=== PATIENT | female | born 1945 | race Caucasian/White ===

== ENCOUNTER 2016-09-01 17:27 | Inpatient (IN) | payer MEDICARE ==
--- NOTE | ~2016-09-01 | DS ---
Unit #: [id number] #: [id number] Patient: LEIGHA VÁZQUEZ [id number] [address] [place], [place] [address] [id number] I MR#: [id number] NAME: LEIGHA VÁZQUEZ. ROOM: 470 Age: 71 Sex: F Admission Date: 09/01/2016 : 1945 Discharge Date: 09/04/2016 Attending Physician: Paula Escobar M.D. Primary Care Physician: Leonela Rodarte M.D. DISCHARGE SUMMARY PRINCIPAL DIAGNOSES 1. Acute kidney injury, prerenal. 2. Nausea, vomiting and diarrhea likely secondary to viral gastroenteritis. 3. Hypomagnesemia. 4. Hyperphosphatemia. 5. Hypertension. 6. Hyperlipidemia. 7. Overweight. 8. Mild protein malnutrition. 9. Hyponatremia, resolved. 10. High anion gap metabolic acidosis secondary to uremia, now resolved. CONSULTANTS Dr. Catalan, nephrology. DIAGNOSTIC STUDIES CARDIOVASCULAR: Two-dimensional echocardiogram, the results of which are currently pending. IMAGING: Bilateral renal ultrasound on September 01, 2016 with generalized bilateral renal cortical thinning. No renal mass or hydronephrosis. Chest x-ray on September 02, 2016 with cardiomegaly. CLINICAL HISTORY AND HOSPITAL COURSE Ms. Vázquez is a very nice 71-year-old female referred to the hospital by her primary care physician after findings of significant elevation in creatinine in blood work done in the office. Please refer to H and P for further details. Upon presentation here the patient's creatinine was initially 9.5. She was placed on aggressive IV fluids. Nephrotoxic medications were discontinued, and nephrology was consulted, and the patient was subsequently admitted. The patient remained on IV fluids in addition to PhosLo, and over the course of several days, creatinine has now been trending down. At time of dictation creatinine today is not yet done, but yesterday it was down to 4.4. I discussed this with Dr. Catalan who states the patient can be discharged home off of any possible nephrotoxic medications, and she will follow up in the office. The patient's associated nausea, vomiting and diarrhea have resolved. I suspect her symptoms began with a viral gastroenteritis and were exacerbated by worsening renal function. Her symptoms have resolved, and Unit #: [id number] #: [id number] Patient: LEIGHA VÁZQUEZ she is tolerating a diet. The patient does have a history of hypertension, and nephrotoxic medications were held during hospitalization. We are going to reinitiate Metoprolol upon discharge but hold her amlodipine/benazepril, and this can be reinitiated if blood pressure continues to elevate and when renal function improves. DISCHARGE CONDITION Stable. DISCHARGE STATUS Discharge to home. DISCHARGE MEDICATIONS 1. Zetia 10 mg daily. 2. Metoprolol tartrate 25 mg daily. 3. Fenofibrate 160 mg daily. 4. Again, Norvasc/benazepril 10/40 is being held. DISCHARGE INSTRUCTIONS Patient was instructed to follow a heart healthy diet. She can increase her activity as tolerated. She should avoid all NSAIDs over the counter until seen in followup. FOLLOW-UP 1. Patient will follow up with Dr. Catalan in 1-2 weeks. 2. She will follow up with Dr. Rodarte in approximately 2 weeks. Dictated by... Paula Escobar M.D. MARIANA/mercedes TD: 09/05/2016 11:36 JOB #: [id number] DISCHARGE SUMMARY X Paula Escobar MD X DISCHARGE SUMMARY
--- NOTE | ~2016-09-01 | US77 ---
[facility] A Service of [facility] RADIOLOGY TEXT RESULTS PATIENT: LEIGHA VÁZQUEZ LOCATION: [facility] [id number] : [birth year] UNIT #: [id number] AGE: [address]: MARCUS ZIMMER MD SEX: F ORDER DR: [id number] [facility] [address] [place], [place] [address] [id number] I MR#: [id number] Acc #: [id number] NAME: LEIGHA VÁZQUEZ : 1945 SEX: F STUDY DATE/TIME: 09/01/2016 18:36 UNIT: [facility] ROOM: [facility] STUDY DESCRIPTION: US Kidney Bilateral Complete Attending Physician: Marcus Zimmer M.D. Ordering Physician: Porter Chang M.D. Primary Care Physician: Leonela Rodarte M.D. MEDICAL IMAGING REPORT This report is preliminary unless electronic signature is present EXAM Bilateral renal ultrasound HISTORY Elevated BUN and creatinine. FINDINGS Ultrasound examination of both kidneys demonstrates no renal mass or hydronephrosis. Fomh-fe-rxaadurs generalized bilateral renal cortical atrophy. No focal renal atrophy or perinephric fluid collection. The right kidney measures 11.4 cm in length and the left kidney measures 10.3 cm in length. The bladder is decompressed and not visible. IMPRESSION 1. Moderate generalized bilateral renal cortical thinning. 2. No renal mass or hydronephrosis. Dictated by... Jeremiah Kim M.D. THIS IS AN ELECTRONICALLY VERIFIED REPORT Jeremiah Kim M.D. at 09/02/2016 3:35 PM DFL/rnr TD: 09/02/2016 00:01 JOB #: [id number] MEDICAL IMAGING REPORT COPY
--- NOTE | ~2016-09-01 | CR63 ---
[facility] A Service of [facility] RADIOLOGY TEXT RESULTS PATIENT: LEIGHA VÁZQUEZ LOCATION: [place] [address] : [birth year] UNIT #: [id number] AGE: [address]: MARCUS ZIMMER MD SEX: F ORDER DR: [id number] [facility] [address] [place], [place] [address] [id number] I MR#: [id number] Acc #: [id number] NAME: LEIGHA VÁZQUEZ : 1945 SEX: F STUDY DATE/TIME: 09/02/2016 14:31 UNIT: [facility] ROOM: [facility] STUDY DESCRIPTION: CR Chest 2 View Attending Physician: Marcus Zimmer M.D. Ordering Physician: Maverick Catalan M.D. Primary Care Physician: Leonela Rodarte M.D. MEDICAL IMAGING REPORT This report is preliminary unless electronic signature is present EXAM 2 view chest. DATE OF EXAM 09/02/2016 INDICATIONS Labile hypertension. Hypotension today. PROCEDURE Frontal and lateral views of the chest. COMPARISON None. FINDINGS Mild cardiomegaly. Low lung volumes. No dense consolidation, pleural fluid or pneumothorax. IMPRESSION Mild cardiomegaly and low lung volumes. Dictated by... Colton Pugh M.D. THIS IS AN ELECTRONICALLY VERIFIED REPORT Colton Pugh M.D. at 09/04/2016 6:59 AM VICKIE/skyler TD: 09/02/2016 17:16 JOB #: [id number] [facility] A Service of [facility] RADIOLOGY TEXT RESULTS PATIENT: LEIGHA VÁZQUEZ LOCATION: [place] [address] : [birth year] UNIT #: [id number] AGE: [address]: MARCUS ZIMMER MD SEX: F ORDER DR: MEDICAL IMAGING REPORT COPY
--- NOTE | ~2016-09-01 | HP ---
Unit #: [id number] #: [id number] Patient: LEIGHA VÁZQUEZ [id number] [address] [address] [id number] MR#: [id number] NAME: LEIGHA VÁZQUEZ. ROOM: [facility] Age: 71 Sex: F Admission Date: 09/01/2016 : 1945 Attending Physician: Jessica Zimmer M.D. Primary Care Physician: Leonela Rodarte M.D. HISTORY AND PHYSICAL CHIEF COMPLAINT Abnormal labs. HISTORY OF PRESENT ILLNESS The patient is a 71-year-old female with history of hypertension and hyperlipidemia, brought to the emergency room from the PCP's office with the concern for abnormal labs. The patient has had diarrhea for the last nine days and then followed by nausea and vomiting for the last two to three days. Patient was seen by the PCP, Dr. Leonela Rodarte, at the office on and had the blood work done. The patient has a creatinine of 7 with a BUN of 65 and potassium of 4.8 with a baseline creatinine of 1.2 from 2012. The patient has been admitted for the above reasons. The patient also complains of the muscle cramps that has been going on for the last few days. The patient has decreased oral intake associated with the nausea and vomiting. The patient denies any new medication other than the Zofran that was started by the PCP. Denies any fever or chills, shortness of breath, chest pain, palpitations. PAST MEDICAL HISTORY 1. History of hypertension. 2. Hyperlipidemia. 3. Degenerative joint disease. PAST SURGICAL HISTORY None. HOME MEDICATIONS 1. Norvasc. 2. Zetia. 3. Statins. 4. Zofran. ALLERGIES SOCIAL HISTORY Denies history of smoking cigarettes, drinking alcohol or any illicit drug abuse. FAMILY HISTORY Positive for diabetes. REVIEW OF SYSTEMS A 14-point review of systems performed and only pertinent positive findings are described above, remaining are negative. Unit #: [id number] #: [id number] Patient: LEIGHA VÁZQUEZ PHYSICAL EXAMINATION VITAL SIGNS: Temperature 97.4, pulse 78, respiratory rate 18, blood pressure 143/55, saturating 96% at room air. GENERAL: Patient is lying on the bed not in acute distress. HEENT: Atraumatic, normocephalic. Pupils equal, round, and reactive to light and accommodation. Extraocular movements are intact. Dry mucous membrane. NECK: Supple. No JVD. LUNGS: Clear to auscultation bilaterally. No rhonchi, no wheezing. HEART: Regular rate and rhythm. ABDOMEN: Soft, positive bowel sounds. EXTREMITIES: No cyanosis, no clubbing. NEUROLOGIC: Alert, awake, oriented. No gross focal motor deficit. DIAGNOSTIC STUDIES LABORATORY: From the PCP's office, creatinine 7, BUN 65, potassium 4.8. Repeat labs are pending from the hospital. ASSESSMENT AND PLAN 1. Diarrhea. 2. Nausea and vomiting. 3. Acute kidney injury with a creatinine of 7. 4. Muscle cramps. 5. Hypertension. PLAN 1. Admit patient to inpatient with telemetry. 2. Check the STAT labs with CBC, CMP, CK, iron, lactate and urinalysis with culture. 3. Continue with IV fluids normal saline at 125 mL/h. 4. Check renal ultrasound to rule out obstruction. 5. Repeat labs again in the morning. 6. Will have the nephrology consult for management of acute kidney injury. 7. Further recommendations will follow. Dictated by Luz Goldstein TD: 09/01/2016 18:44 JOB #: [id number] Unit #: [id number] #: [id number] Patient: LEIGHA VÁZQUEZ HISTORY AND PHYSICAL X X HISTORY AND PHYSICAL
--- NOTE | ~2016-09-01 | CO ---
Unit #: [id number] #: [id number] Patient: LEIGHA VÁZQUEZ [id number] [address] [place], [place] [address] [id number] MR#: [id number] NAME: LEIGHA VÁZQUEZ. ROOM: [facility] Age: 71 Sex: F Admission Date: 09/01/2016 : 1945 Attending Physician: Jessica Zimmer M.D. Primary Care Physician: Leonela Rodarte M.D. CONSULTATION REPORT REASON FOR CONSULTATION Renal failure, hyperphosphatemia, metabolic acidosis. HISTORY OF PRESENT ILLNESS A 71-year-old female with significant past medical history of hypertension, hyperlipidemia, came to the ER and was found to have a very abnormal labs by primary care with a creatinine of 7 and now creatinine is 9.3. The patient's urine output that was low for the last 2 days has improved. The patient has diarrhea and vomiting going on off and on for the last 3 to 4 days, but she keep taking her antihypertensive medications. She never had a significant drop in blood pressure, but it was never recorded while she was very sick. The patient denies any other complaint at this time. Her abdominal pain has improved. Her diarrhea has improved. Her nausea, vomiting, sickness has improved and she is eating better. Her urine output that was low overnight has improved and more than 400 mL in last few hours. Her urinalysis did show some proteinuria and hematuria. PAST MEDICAL HISTORY Significant for hypertension, hyperlipidemia, degenerative joint disease. PAST SURGICAL HISTORY Noncontributory. HOME MEDICATIONS Norvasc, Zetia, statin, and Zofran. SOCIAL HISTORY The patient has no history of smoking or alcohol. FAMILY HISTORY Significant for diabetes. REVIEW OF SYSTEMS Already explained. PHYSICAL EXAMINATION GENERAL: The patient is an elderly white female, not in any acute distress. VITAL SIGNS: Last blood pressure is 138/70, pulse is 85, temperature 98, respiratory rate is 18, oxygen saturation 98%. HEAD AND NECK: Pupils are reactive to light. Extraocular movements intact. Mucous membranes moist. NECK: Supple. Unit #: [id number] #: [id number] Patient: LEIGHA VÁZQUEZ CHEST: Clear. No wheezes, no rales. HEART: Regular rate and rhythm. No murmur. No gallop. ABDOMEN: Soft and nontender. EXTREMITIES: No clubbing, cyanosis, or edema. Peripheral pulses are palpable. NEUROLOGIC: Grossly nonfocal. SKIN: Normal. DIAGNOSTIC STUDIES LABORATORY RESULTS: Showed sodium 129, creatinine 9.3, bicarb 16, phosphorus 8.8, magnesium 1.7. ASSESSMENT AND PLAN 1. Acute kidney injury likely it is acute tubular necrosis secondary to nausea, vomiting, diarrhea, decreased blood pressure in the presence of JOANNE inhibitors and some diuretics. The patient has significant volume depletion. Creatinine will improve slowly in next 3 to 4 days period. 2. Hematuria and proteinuria that is present on urinalysis will quantify protein excretion. We will check serology at this time. 3. Significant hyperphosphatemia secondary to acute kidney injury. Continue phosphate binder at this time. 4. Hyponatremia. We will follow up with the labs. Sodium level is low, because of renal failure and diarrhea. DISCUSSION Change IV fluid to bicarbonate-based fluid because of significant acidosis. Repeat labs. Check serology. Follow up with chest x-ray. Start phosphate binder. Repeat phosphorus level tomorrow morning. Thank you for letting me participate in taking care of this patient. Dictated by... Maverick Catalan M.D. KEITH/brook TD: 09/02/2016 13:15 JOB #: [id number] CONSULTATION REPORT X Maverick Catalan MD CONSULTATION REPORT
[~2016-09-01 17:27] MED LIST: KEFLEX250 M2 PO; NORCO 5/325 TAB1 TAB PO
[2016-09-01 17:59] LABS: BASOPHIL# 0.1 X10e3 (0-0.3); BASOPHIL% 0.8 % (0-2.5); EOSINOPHIL# 2.1 X10e3 (0-0.7); EOSINOPHIL% 14.5 % (0.0-7.0); HEMATOCRIT 39.5 % (35.0-45.0); HEMOGLOBIN 13.5 gm/dL (12.0-16.0); LYMPHOCYTE# 1.7 X10e3 (1.0-3.5); MEAN CELL VOLUME 88.3 FL (83-96); MEAN CORPUSCULAR HEMOGLOBIN 30.1 PG (28-34); MEAN CORPUSCULAR HGB CONC 34.1 g/dL (30-36); MONOCYTE# 1.3 X10e3 (0-1.0); MONOCYTE% 9.2 % (3.0-12.0); NEUTROPHIL# 9.2 X10e3 (1.5-7.1); NEUTROPHIL% 63.5 % (40-75); PLATELET COUNT 335 X10e3 (140-420); RED BLOOD COUNT 4.47 X10e (3.90-5.30); RED CELL DISTRIBUTION WIDTH 12.6 % (11.0-15.5); WHITE BLOOD COUNT 14.5 X10e3 (4.0-10.5)
[2016-09-01 18:00] LABS: DIFF IND NO
[2016-09-01 18:12] LABS: INR 1.1; PROTHROMBIN TIME (PATIENT) 11.6 SECONDS (9.6-11.5)
[2016-09-01 18:46] LABS: BILIRUBIN,TOTAL 0.7 mg/dL (0.2-2.0); BUN/CREATININE RATIO 9.36; CALCIUM SERUM 8.6 mg/dL (8.4-10.2); CREATININE SERUM 9.5 mg/dL (0.6-1.4); GLOM FILT RATE Estimated 4.3 mL/min (>60); POTASSIUM 4.6 mmol/L (3.5-5.1); PROTEIN TOTAL SERUM 7.5 g/dL (6.0-8.3)
[2016-09-01] MEDS ORDERED: FENOFIBRATE160 MG PO (20:35)
[2016-09-01] MEDS ORDERED: ZETIA PO (20:36)
[2016-09-01] MEDS ORDERED: AMLODIPINE-BEN1 EAC5 PO (20:36)
[2016-09-01] MEDS ORDERED: METOPROLOL TAR25 MG PO (20:38)
[2016-09-01 21:51] LABS: MAGNESIUM 1.7 mg/dL (1.6-3.0)
[2016-09-01 21:53] LABS: PHOSPHOROUS 8.8 mg/dL (2.5-4.6)
[2016-09-02 02:01] LABS: BASOPHIL# 0.1 X10e3 (0-0.3); BASOPHIL% 0.8 % (0-2.5); EOSINOPHIL# 1.7 X10e3 (0-0.7); EOSINOPHIL% 13.1 % (0.0-7.0); HEMATOCRIT 35.9 % (35.0-45.0); HEMOGLOBIN 12.2 gm/dL (12.0-16.0); LYMPHOCYTE# 1.5 X10e3 (1.0-3.5); LYMPHOCYTE% 11.4 % (17.0-45.0); MEAN CELL VOLUME 88.6 FL (83-96); MEAN CORPUSCULAR HEMOGLOBIN 30.1 PG (28-34); MEAN PLATELET VOLUME 7.8 FL (6.5-11.5); MONOCYTE% 7.7 % (3.0-12.0); NEUTROPHIL# 8.9 X10e3 (1.5-7.1); PLATELET COUNT 261 X10e3 (140-420); RED BLOOD COUNT 4.06 X10e (3.90-5.30); WHITE BLOOD COUNT 13.3 X10e3 (4.0-10.5)
[2016-09-02 02:07] LABS: DIFF IND NO
[2016-09-02 02:31] LABS: URINE APPEARANCE TURBID; URINE BILIRUBIN NEG (NEG); URINE BLOOD 3+ (NEG); URINE COLOR YELLOW; URINE GLUCOSE NEG (NEG); URINE KETONE NEG (NEG); URINE LEUKOCYTE ESTERASE 2+ (NEG); URINE NITRATE NEG (NEG); URINE PROTEIN 2+ (NEG); URINE SPECIFIC GRAVITY 1.018 (1.003-1.035); URINE UROBILINOGEN 0.2 MG/DL (NEG)
[2016-09-02 02:34] LABS: URINE BACTERIA AUWI NEG (NEGATIVE); URINE SQUAMOUS EPITHELIAL CELL NONE SEEN /[HPF]; UWBCS1 AUWI 50-100 (0-5)
[2016-09-02 02:38] LABS: BUN/CREATININE RATIO 9.13; CALCIUM SERUM 8.1 mg/dL (8.4-10.2); CREATININE SERUM 9.3 mg/dL (0.6-1.4); GLOM FILT RATE Estimated 4.4 mL/min (>60); POTASSIUM 4.7 mmol/L (3.5-5.1)
[2016-09-02 14:40] LABS: BASOPHIL# 0.1 X10e3 (0-0.3); BASOPHIL% 0.8 % (0-2.5); EOSINOPHIL# 1.5 X10e3 (0-0.7); EOSINOPHIL% 12.7 % (0.0-7.0); HEMATOCRIT 32.9 % (35.0-45.0); HEMOGLOBIN 11.4 gm/dL (12.0-16.0); LYMPHOCYTE# 1.3 X10e3 (1.0-3.5); LYMPHOCYTE% 11.2 % (17.0-45.0); MEAN CELL VOLUME 86.9 FL (83-96); MEAN CORPUSCULAR HGB CONC 34.6 g/dL (30-36); MONOCYTE% 8.2 % (3.0-12.0); NEUTROPHIL% 67.1 % (40-75); PLATELET COUNT 242 X10e3 (140-420); RED BLOOD COUNT 3.79 X10e (3.90-5.30); RED CELL DISTRIBUTION WIDTH 12.6 % (11.0-15.5); WHITE BLOOD COUNT 11.9 X10e3 (4.0-10.5)
[2016-09-02 14:50] LABS: DIFF IND NO
[2016-09-02 15:01] LABS: ALBUMIN SERUM 3.1 g/dL (3.5-5.0); BILIRUBIN,TOTAL 0.5 mg/dL (0.2-2.0); BUN/CREATININE RATIO 11.76; CALCIUM SERUM 7.3 mg/dL (8.4-10.2); GLOM FILT RATE Estimated 6.4 mL/min (>60); MAGNESIUM 1.4 mg/dL (1.6-3.0); POTASSIUM 4.2 mmol/L (3.5-5.1); PROTEIN TOTAL SERUM 6.6 g/dL (6.0-8.3)
[2016-09-02 15:02] LABS: CREATININE SERUM 6.8 mg/dL (0.6-1.4)
[2016-09-02 15:07] LABS: CREATININE,RANDOM URINE 172 mg/dL; SODIUM URINE RANDOM 17 mmol/L
[2016-09-02 15:09] LABS: URINE APPEARANCE CLOUDY; URINE BILIRUBIN NEG (NEG); URINE BLOOD 3+ (NEG); URINE COLOR YELLOW; URINE GLUCOSE NEG (NEG); URINE KETONE NEG (NEG); URINE LEUKOCYTE ESTERASE 2+ (NEG); URINE NITRATE NEG (NEG); URINE PROTEIN TRACE (NEG); URINE SPECIFIC GRAVITY 1.013 (1.003-1.035); URINE UROBILINOGEN 0.2 MG/DL (NEG)
[2016-09-02 15:11] LABS: URINE BACTERIA AUWI NEG (NEGATIVE); URINE SQUAMOUS EPITHELIAL CELL OCC /[HPF]; UWBCS1 AUWI 25-50 (0-5)
[2016-09-03 03:04] LABS: BUN/CREATININE RATIO 16.36; CALCIUM SERUM 7.6 mg/dL (8.4-10.2); GLOM FILT RATE Estimated 10.5 mL/min (>60); MAGNESIUM 1.5 mg/dL (1.6-3.0); PHOSPHOROUS 4.9 mg/dL (2.5-4.6); POTASSIUM 3.7 mmol/L (3.5-5.1)
[2016-09-03 03:05] LABS: CREATININE SERUM 4.4 mg/dL (0.6-1.4)
[2016-09-03 03:24] LABS: BASOPHIL# 0.1 X10e3 (0-0.3); BASOPHIL% 0.7 % (0-2.5); EOSINOPHIL# 1.1 X10e3 (0-0.7); EOSINOPHIL% 12.2 % (0.0-7.0); HEMATOCRIT 32.1 % (35.0-45.0); HEMOGLOBIN 11.1 gm/dL (12.0-16.0); LYMPHOCYTE# 1.5 X10e3 (1.0-3.5); LYMPHOCYTE% 15.8 % (17.0-45.0); MEAN CELL VOLUME 87.7 FL (83-96); MEAN CORPUSCULAR HEMOGLOBIN 30.4 PG (28-34); MEAN CORPUSCULAR HGB CONC 34.7 g/dL (30-36); MEAN PLATELET VOLUME 8.1 FL (6.5-11.5); MONOCYTE# 0.8 X10e3 (0-1.0); MONOCYTE% 8.6 % (3.0-12.0); NEUTROPHIL# 5.8 X10e3 (1.5-7.1); NEUTROPHIL% 62.7 % (40-75); PLATELET COUNT 196 X10e3 (140-420); RED BLOOD COUNT 3.65 X10e (3.90-5.30); RED CELL DISTRIBUTION WIDTH 12.9 % (11.0-15.5); WHITE BLOOD COUNT 9.2 X10e3 (4.0-10.5)
[2016-09-03 03:32] LABS: DIFF IND NO
[2016-09-04 08:52] LABS: CALCIUM SERUM 8.6 mg/dL (8.4-10.2); GLOM FILT RATE Estimated 26.1 mL/min (>60); POTASSIUM 4.4 mmol/L (3.5-5.1)
[2016-09-05 22:14] LABS: SPE A1GLOB (PNL) 0.3 g/dL (0.2-0.3); SPE A2GLOB (PNL) 0.9 g/dL (0.5-0.9); SPE ALB (PNL) 3.5 g/dL (3.8-4.8); SPE BETA 1 GLOBULIN 0.4 g/dL (0.4-0.6); SPE BETA 2 GLOBULIN 0.3 g/dL (0.2-0.5); SPE GAMMA (PNL) 0.8 g/dL (0.8-1.7); SPETP (PNL) 6.1 g/dL (6.1-8.1)
[2016-09-06 07:36] LABS: COMPLEMENT C3 184 mg/dL (90-180); COMPLEMENT C4 28 mg/dL (16-47)
[2016-09-06 08:53] LABS: HA AB IGM (HEPPAN) Nonreactive (Nonreactive); HB CORE AB IGM (HEPPAN) Nonreactive (Nonreactive); HB S AG (HEPPAN) Nonreactive (Nonreactive); HEP C AB (HEPPAN) Nonreactive (Nonreactive); HEP C AB SIGNAL TO CUTOFF 0.02 ratio (<1.00)
[2016-09-06 14:12] LABS: ANA SCREEN Negative (Negative); MYELOPEROXIDASE AB (PNL) <1.0 AI (<1.0); PROTEINASE-3 AB (PNL) <1.0 AI (<1.0)
== END 2016-09-04 12:39 | disposition home or self-care (01) | DRG 683 ==
LOC: C4C 17:27
PROVIDERS: Internal Medicine; Internal Medicine Nephrology
DX: N17.0 Acute kidney failure with tubular necrosis (principal); E87.1 Hypo-osmolality and hyponatremia; E87.2 Acidosis; E44.1 Mild protein-calorie malnutrition; E86.0 Dehydration; E78.5 Hyperlipidemia, unspecified; I10 Essential (primary) hypertension; E83.39 Other disorders of phosphorus metabolism; E83.42 Hypomagnesemia; A08.4 Viral intestinal infection, unspecified; R80.9 Proteinuria, unspecified; R31.9 Hematuria, unspecified; E66.3 Overweight
CPT/HCPCS: 71020; 76770; 80048; 80053; 80074; 81003; 82550; 82570; 83520; 83605; 83735; 84100; 84156; 84165; 84300; 85025; 85610; 86021; 86038; 86039; 86140; 86160; 86334; 87040; 87045; 87086; 87177; 87209; 87427; 87899; 93306; 97116; 97161; 97165; 97530; G8978-GP; G8979-GP; G8980-GP; G8987-GO; G8988-GO; G8989-GO; J0696; J3475